=== PATIENT | male | born 1960 | race Hispanic/Latino ===

== ENCOUNTER 2017-09-18 10:07 | Emergency (ER) | payer OTHER ==
[~2017-09-18] VITALS: Ht 172.7 cm; Wt 81.6 kg
[2017-09-18] MEDS ORDERED: IMITREX25 MG (10:44)
[2017-09-18] MEDS ORDERED: SUDAFED 12-HOU120 MG (10:44)
[2017-09-18] MEDS ORDERED: VIAGRA100 MG (10:44)
== END 2017-09-18 12:07 | disposition home or self-care (01) ==
LOC: FSED 10:07
DX: R20.2 Paresthesia of skin (principal); R51 Headache; R03.0 Elevated blood-pressure reading, without diagnosis of hypertension
CPT/HCPCS: 70450; 82553; 84484; 93005; 99284